=== PATIENT | male | born 1995 | race Caucasian/White ===

== ENCOUNTER 2017-07-31 09:58 | Emergency (ER) | payer SELFPAY ==
[~2017-07-31] VITALS: Ht 170.2 cm; Wt 84.0 kg
[2017-07-31 10:02] VITALS: BP 112/52
[2017-07-31 11:43] LABS: CLARITY URINE CLEAR (CLEAR); COLOR URINE DARK YELLOW (YELLOW); GLUCOSE URINE NEGATIVE (NEGATIVE); KETONES URINE TRACE (NEGATIVE); LEUKOCYTE ESTERASE URINE 2+ (NEGATIVE); NITRITE URINE NEGATIVE (NEGATIVE); OCCULT BLOOD URINE NEGATIVE (NEGATIVE); PROTEIN URINE 1+ (NEGATIVE); SPECIFIC GRAVITY URINE 1.037 (1.005-1.030)
[2017-07-31] MEDS ORDERED: AZITHROMYCIN 500 MG TABLET PO ONE (12:45)
[2017-07-31] MEDS ORDERED: CEFTRIAXONE SODIUM 250 MG/VIAL IM ONE (12:45)
[2017-08-02 04:16] LABS: CHLAMYDIA TRACHOMATIS NAA Positive (Negative); NEISSERIA GONORRHOEAE NAA Negative (Negative)
== END 2017-07-31 13:06 | disposition home or self-care (01) ==
LOC: ER 10:45
DX: N45.1 Epididymitis (principal)
CPT/HCPCS: 76870; 81001; 87491; 87591; 93976; 96372; 99285; J0696